=== PATIENT | male | born 1980 ===

== ENCOUNTER 2017-10-19 12:46 | Emergency (ER) | payer OTHER ==
[2017-10-19 12:55] VITALS: BP 99/60; PULSE 69; RESP 18; TEMP 99.2; O2SAT 99
--- NOTE | 2017-10-19 15:03 | RAD ---
PROCEDURE: Left Knee Radiographs. HISTORY: Pain. COMPARISON: None. FINDINGS: BONES: No fracture appreciated or suspect Superolateral patellar appearance compatible with developmental variation. JOINTS: Normal. No osteoarthritis. JOINT EFFUSION: None. OTHER FINDINGS: The pre and infrapatellar most superficial soft tissues appear thickened -correlate clinically with physical exam. IMPRESSION: No fracture or lytic lesion.Superolateral patellar appearance compatible with developmental variation. The pre and infrapatellar most superficial soft tissues appear thickened -correlate clinically with physical exam.
--- NOTE | 2017-10-19 15:08 | C.PDOC ---
History Of Present Illness 37 y/o male presents to the ER complaining of left knee pain which began after he fell off a ladder and hit his left knee at work 6 days ago. Patient states that he was seen in [facility] ER. Patient reports that he had a X-ray which was negative and he was not given any referrals. He was given a work note to take a few days off from work. However, he notes that the pain persists. Time Seen by Provider: 10/19/17 13:32 Chief Complaint (Nursing): Lower Extremity Problem/Injury History Per: Patient History/Exam Limitations: no limitations Onset/Duration Of Symptoms: Days Current Symptoms Are (Timing): Still Present Severity: Moderate Past Medical History Reviewed: Historical Data, Nursing Documentation, Vital Signs Vital Signs: Last Vital Signs Temp 99.2 F 10/19/17 12:52 Pulse 69 10/19/17 12:52 Resp 18 10/19/17 12:52 BP 99/60 L 10/19/17 12:52 Pulse Ox 99 10/19/17 17:41 - Medical History PMH: No Chronic Diseases Other Surgeries: Hx of surgeries Family History: States: No Known Family Hx - Social History Hx Tobacco Use: Yes (Socially) Hx Alcohol Use: Yes (Socially) Hx Substance Use: No - Immunization History Hx Tetanus Toxoid Vaccination: No Hx Influenza Vaccination: No Hx Pneumococcal Vaccination: No Review Of Systems Except As Marked, All Systems Reviewed And Found Negative. Musculoskeletal: Positive for: Leg Pain (left knee pain) Neurological: Negative for: Weakness, Numbness Physical Exam - Physical Exam Appears: Non-toxic, No Acute Distress Skin: Normal Color, Warm, Dry, Ecchymosis (ecchymosis to medial aspect of left knee) Head: Atraumatic, Normacephalic Eye(s): bilateral: Normal Inspection Nose: Normal Oral Mucosa: Moist Neck: Supple Chest: Symmetrical Cardiovascular: Rhythm Regular Respiratory: Normal Breath Sounds, No Rales, No Rhonchi, No Wheezing Extremity: No Normal ROM (pain with flexion of left knee, decreased ROM in left knee due to pain), Tenderness (tenderness to palpation in left knee), Swelling ( swelling to medial aspect of left knee) Neurological/Psych: Oriented x3, Normal Speech ED Course And Treatment O2 Sat by Pulse Oximetry: 99 (RA) Pulse Ox Interpretation: Normal - Other Rad X-Ray- Left Knee X-Ray: Viewed By Me, Read By Radiologist Interpretation: PROCEDURE: Left Knee Radiographs. HISTORY: Pain. COMPARISON : None. FINDINGS: BONES: No fracture appreciated or suspect. Superolateral patellar appearance compatible with developmental variation. JOINTS: Normal. No osteoarthritis. JOINT EFFUSION: None. OTHER FINDINGS: The pre and infrapatellar most superficial soft tissues appear thickened -correlate clinically with physical exam. IMPRESSION: No fracture or lytic lesion.Superolateral patellar appearance compatible with developmental variation. The pre and infrapatellar most superficial soft tissues appear thickened -correlate clinically with physical exam. Progress Note: X-Ray - Left Knee found to be negative. Patient provided with knee immobilizer. Patient has been discharged with referral to follow up with orthopedics in 2 days. Disposition - Disposition Referrals: Sanya Pope III, MD [Staff Provider] - Saundra Mattson MD [Staff Provider] - Martin Green MD [Staff Provider] - Manisha Briggs MD [Staff Provider] - Disposition: HOME/ ROUTINE Disposition Time: 15:05 Condition: STABLE Additional Instructions: Follow up with Orthopedist within 2-3 days. Contact your work compensation insurance to find a provider who participates with your insurance plan. List of [facility] Orthopedists will be attached to your discharge instructions. Return to ED if feel worse. Prescriptions: Ibuprofen [Motrin Tab] 600 mg PO Q8 #30 tab Instructions: Knee Immobilizer (DC), Knee Pain Forms: [employer] (Latvian), Work Excuse - Clinical Impression Clinical Impression: Knee injury - PA / EMERGENCY MEDICAL SERVICE MANAGER / Resident Statement MD/DO has reviewed & agrees with the documentation as recorded. - Scribe Statement The provider has reviewed the documentation as recorded by the Jose Juan Huggins Provider Attestation All medical record entries made by the Makedaibgrant were at my direction and personally dictated by me. I have reviewed the chart and agree that the record accurately reflects my personal performance of the history, physical exam, medical decision making, and the department course for this patient. I have also personally directed, reviewed, and agree with the discharge instructions and disposition.
== END 2017-10-19 15:19 | disposition home or self-care (01) ==
LOC: C.ER 12:46
DX: S80.02XD Contusion of left knee, subsequent encounter (principal); W11.XXXD Fall on and from ladder, subsequent encounter

== ENCOUNTER 2018-09-19 09:20 | Emergency (ER) | payer OTHER ==
[2018-09-19 09:22] VITALS: BMI 24.1
[2018-09-19 09:24] VITALS: BP 108/71; PULSE 82; RESP 18; TEMP 98.8; O2SAT 100
--- NOTE | 2018-09-19 09:37 | C.PDOC ---
History Of Present Illness 38 y/o male presents to the ER complaining of 2 episodes of abdominal colic last night. Patient states that he did not have any pain today. Patient is also complaining of mild nasal congestion and sore throat which began today. Denies having fever,chills, nausea, vomiting, diarrhea, dysuria, and hematuria. Time Seen by Provider: 09/19/18 09:31 Chief Complaint (Nursing): Abdominal Pain History Per: Patient History/Exam Limitations: no limitations Onset/Duration Of Symptoms: Days Current Symptoms Are (Timing): Still Present Severity: Moderate Past Medical History Reviewed: Historical Data, Nursing Documentation, Vital Signs Vital Signs: Last Vital Signs Temp 98.8 F 09/19/18 09:22 Pulse 82 09/19/18 09:22 Resp 18 09/19/18 09:22 BP 108/71 09/19/18 09:22 Pulse Ox 100 09/19/18 09:22 Primary Care Provider: FAMILY PROVIDER,NO - Medical History PMH: No Chronic Diseases Other Surgeries: Hx of surgeries Family History: States: No Known Family Hx - Social History Hx Tobacco Use: Yes (Socially) Hx Alcohol Use: Yes (Socially) Hx Substance Use: No - Immunization History Hx Tetanus Toxoid Vaccination: No Hx Influenza Vaccination: No Hx Pneumococcal Vaccination: No Review Of Systems Except As Marked, All Systems Reviewed And Found Negative. Constitutional: Negative for: Fever, Chills ENT: Positive for: Nose Congestion, Throat Pain Gastrointestinal: Positive for: Abdominal Pain. Negative for: Nausea, Vomiting Physical Exam - Physical Exam Appears: Non-toxic, No Acute Distress Skin: Normal Color, Warm, Dry Head: Atraumatic, Normacephalic Eye(s): bilateral: Normal Inspection Nose: Normal Oral Mucosa: Moist Throat: Normal, No Erythema, No Exudate Neck: Supple Chest: Symmetrical Cardiovascular: Rhythm Regular Respiratory: Normal Breath Sounds, No Rales, No Rhonchi, No Wheezing Gastrointestinal/Abdominal: Bowel Sounds (normal bowel sounds), Soft, No Tenderness, No Guarding, No Rebound, Other (tympanic to percussion, negative Rae's, negative McBurney's) Neurological/Psych: Oriented x3, Normal Speech ED Course And Treatment O2 Sat by Pulse Oximetry: 100 (RA) Pulse Ox Interpretation: Normal Medical Decision Making Medical Decision Making: abd colic last night benign belly now prob intestinal colic- increased gasses laxative and return PRN mild sore throat seasonal allergies Disposition Doctor Will See Patient In The: Office Counseled Patient/Family Regarding: Studies Performed, Diagnosis - Disposition Referrals: [facility] [Outside] [facility] [Outside] [facility] [Outside] [facility] [Outside] Disposition: HOME/ ROUTINE Disposition Time: 09:36 Condition: GOOD Additional Instructions: florentin purgante ahora re-evalua tu molestia del abdomen despues de usar el dorian 2-3 veces cambios de dieta y ejercisio Allergias Claritin 10 mg diario iris necessario Instructions: Seasonal Allergies in Adults, Gas and Bloating (ED) Forms: [facility] (Mosotho) Print Language: BRAZILIAN - Clinical Impression Clinical Impression: Abdominal colic - Scribe Statement The provider has reviewed the documentation as recorded by the Makedaibgrant Huggins Provider Attestation: All medical record entries made by the Scribe were at my direction and personally dictated by me. I have reviewed the chart and agree that the record accurately reflects my personal performance of the history, physical exam, medical decision making, and the department course for this patient. I have also personally directed, reviewed, and agree with the discharge instructions and disposition.
[2018-09-19] MEDS ORDERED: Magnesium Citrate Oral SOL (300 ml) PO ONE (09:38)
[2018-09-19] MEDS ORDERED: Magnesium Citrate Oral SOL (300 ml) ONE (09:46)
== END 2018-09-19 09:58 | disposition home or self-care (01) ==
LOC: C.ER 09:20
DX: R10.84 Generalized abdominal pain (principal)